=== PATIENT | male | born 2000 | race Hispanic/Latino ===

== ENCOUNTER 2022-01-16 16:07 | Inpatient (IN) | payer OTHER ==
[~2022-01-16] VITALS: Ht 170.2 cm; Wt 97.3 kg
[2022-01-16 17:04] LABS: HEMATOCRIT 46.8 % (42.0-52.0); HEMOGLOBIN 15.6 g/dl (13.5-17.5); MEAN CORPUSCULAR HEMOGLOBIN 28.4 pg (27.0-33.0); MEAN CORPUSCULAR HGB CONC 33.3 g/dl (32.0-36.5); MEAN CORPUSCULAR VOLUME 85.2 fl (80.0-96.0); PLATELET COUNT, AUTOMATED 287 10^3/uL (150-450); RED BLOOD COUNT 5.49 10^6/uL (4.30-6.10)
[2022-01-16 17:12] LABS: AMPHETAMINES LEVEL URINE NEGATIVE (NEGATIVE); BARBITURATES URINE NEGATIVE (NEGATIVE); BENZODIAZEPINES URINE NEGATIVE (NEGATIVE); CANNABINOIDS URINE NEGATIVE (NEGATIVE); COCAINE METABOLITE URINE NEGATIVE (NEGATIVE); METHADONE URINE NEGATIVE (NEGATIVE); OPIATES URINE NEGATIVE (NEGATIVE); PHENCYCLIDINE URINE NEGATIVE (NEGATIVE)
[2022-01-16 17:34] LABS: ALBUMIN 3.9 GM/DL (3.2-5.2); ALT/SGPT 45 U/L (12-78); BILIRUBIN,DIRECT 0.1 MG/DL (0.0-0.2); BILIRUBIN,TOTAL 0.5 MG/DL (0.2-1.0); BLOOD UREA NITROGEN 9 MG/DL (7-18); CALCIUM LEVEL 9.1 MG/DL (8.5-10.1); CARBON DIOXIDE LEVEL 27 MEQ/L (21-32); CHLORIDE LEVEL 108 MEQ/L (98-107); CREATININE FOR GFR 0.92 MG/DL (0.70-1.30); ETHYL ALCOHOL (ETHANOL) < 0.003 % (0.000-0.010); GLUCOSE, FASTING 102 MG/DL (70-100); POTASSIUM SERUM 4.1 MEQ/L (3.5-5.1); SALICYLATE LEVEL < 1.7 MG/DL (5.0-30.0); SODIUM LEVEL 141 MEQ/L (136-145); TOTAL PROTEIN 7.5 GM/DL (6.4-8.2)
[2022-01-16 17:35] LABS: ACETAMINOPHEN LEVEL < 2.0 UG/ML (10.0-30.0)
[2022-01-16 18:15] LABS: RSV AMPLIFICATION NEGATIVE (NEGATIVE)
[2022-01-17] MEDS: NICOTINE 14 MG/24 HR TRANSDERMAL TD SCH (09:00)
[2022-01-17] MEDS ORDERED: traZODone 50 MG TAB PO PRN (13:30)
[2022-01-17] MEDS ORDERED: diphenhydrAMINE 25MG CAP PO PRN (13:30)
[2022-01-17] MEDS ORDERED: MAALOX 30 ML SUSP *UDC PO PRN (13:30)
[2022-01-17] MEDS ORDERED: MOM 30ML SUSPENSION UDC PO PRN (13:30)
[2022-01-17] MEDS ORDERED: IBUPROFEN 400MG TAB PO PRN (13:30)
[2022-01-17] MEDS ORDERED: ACETAMINOPHEN TAB 650MG DOSE (2X325MG) PO PRN (13:30)
[2022-01-17 15:02] VITALS: BP 148/92
[2022-01-17] MEDS ORDERED: HOME MED LIST COMPLETE! XX SCH (16:10)
[2022-01-18 06:42] VITALS: BP 142/92
[2022-01-18] MEDS: NICOTINE 14 MG/24 HR TRANSDERMAL TD SCH (09:00)
[2022-01-18] MEDS ORDERED: ALBUTEROL 90 MCG/ACT 8GM HFA INHALER INH PRN (12:25)
[2022-01-18] MEDS: SERTRALINE HCL 25 MG TABLET PO SCH (13:03)
[2022-01-18 17:42] VITALS: BP 126/90
[2022-01-19 06:20] VITALS: BP 121/82
[2022-01-19] MEDS: NICOTINE 14 MG/24 HR TRANSDERMAL TD SCH (09:00)
[2022-01-19] MEDS: SERTRALINE HCL 25 MG TABLET PO SCH (09:20)
[2022-01-19 17:43] VITALS: BP 136/77
[2022-01-20 06:11] VITALS: BP 148/73
[2022-01-20] MEDS: SERTRALINE HCL 25 MG TABLET PO SCH (08:38)
[2022-01-20] MEDS: NICOTINE 14 MG/24 HR TRANSDERMAL TD SCH (08:41)
[2022-01-20 16:47] VITALS: BP 143/68
[2022-01-21 07:00] VITALS: BP 139/83
[2022-01-21] MEDS: NICOTINE 14 MG/24 HR TRANSDERMAL TD SCH (09:00)
[2022-01-21] MEDS: SERTRALINE HCL 25 MG TABLET PO SCH (09:44)
[2022-01-21] MEDS ORDERED: SERT25TA21 PO (10:03)
[2022-01-21] MEDS ORDERED: TRAZ-252 PO (10:03)
[2022-01-21] MEDS ORDERED: NICO14PA TD (10:03)
== END 2022-01-21 13:25 | disposition home or self-care (01) | DRG 885 ==
LOC: M ED 16:07 → M ED INP 01-17 13:27 → M PSY 01-17 14:45
PROVIDERS: ADMIT Student in an Organized Health Care Education/Training Program; ATTEND Student in an Organized Health Care Education/Training Program
DX: F33.2 Major depressive disorder, recurrent severe without psychotic features (principal); U07.1 COVID-19; R45.851 Suicidal ideations; F43.9 Reaction to severe stress, unspecified; Z63.8 Other specified problems related to primary support group; Z62.810 Personal history of physical and sexual abuse in childhood; Z62.811 Personal history of psychological abuse in childhood; E66.9 Obesity, unspecified; Z68.33 Body mass index [BMI] 33.0-33.9, adult; J45.909 Unspecified asthma, uncomplicated

== ENCOUNTER → 2022-02-14 | Outpatient (CLI) | payer OTHER ==
[~2022-02-14] MED LIST: NICO14PA TD; SERT25TA21 PO; TRAZ-252 PO
== END ==
LOC: EDUNIT# 13:00 → M CARPUL 13:30
PROVIDERS: ATTEND Physician Assistant
DX: R06.00 Dyspnea, unspecified (principal)

== ENCOUNTER → 2022-03-19 | Outpatient (CLI) | payer OTHER ==
[~2022-03-19] MED LIST changes: +METHACHOLINE KIT (J7674) INH ONE
== END ==
LOC: M CARPUL 10:07
PROVIDERS: ATTEND Physician Assistant
DX: R06.00 Dyspnea, unspecified (principal)